=== PATIENT | female | born 1985 | race Caucasian/White ===

== ENCOUNTER → 2020-08-02 | Outpatient (CLI) | payer OTHER ==
[~2020-08-02] MED LIST: IBUPROFEN600 MG PO; Viscous Lidocaine2% TOP
[2020-08-03 08:14] LABS: FREE THYROXINE INDEX 2.2 (1.2-4.9); THYROXINE (T4) 7.9 ug/dL (4.5-12.0)
== END ==
LOC: LAB 10:46
PROVIDERS: Obstetrics & Gynecology
DX: R13.10 Dysphagia, unspecified (principal)
CPT/HCPCS: 36415; 84436; 84443; 84479; 84480

== ENCOUNTER → 2020-08-12 | Outpatient (CLI) | payer OTHER | LOC: EXRD 06-25 13:30 | DX: E04.9 Nontoxic goiter, unspecified (principal); R13.10 Dysphagia, unspecified | CPT/HCPCS: 76536 ==

== ENCOUNTER → 2020-08-31 | Outpatient (CLI) | payer OTHER | LOC: KOH-I 10:48 | DX: R05 Cough (principal); M54.2 Cervicalgia; M54.9 Dorsalgia, unspecified; M47.815 Spondylosis without myelopathy or radiculopathy, thoracolumbar region; M48.04 Spinal stenosis, thoracic region; M47.817 Spondylosis without myelopathy or radiculopathy, lumbosacral region | CPT/HCPCS: 71046; 72040; 72070; 72100 ==

== ENCOUNTER → 2020-11-03 | Outpatient (CLI) | payer OTHER | LOC: KOH-I 14:23 | DX: S69.91XA Unspecified injury of right wrist, hand and finger(s), initial encounter (principal); S62.396A Other fracture of fifth metacarpal bone, right hand, initial encounter for closed fracture | CPT/HCPCS: 73130 ==